=== PATIENT | male | born 1970 | race Caucasian/White ===

== ENCOUNTER 2018-05-02 12:32 | Inpatient (IN) ==
[~2018-05-02 12:32] MED LIST: DEXTROSE 50% 25 GM/50 ML SYRINGE IV PRN; GLUCAGON 1 MG VIAL IM PRN
[2018-05-02] MEDS ORDERED: INFLUENZA VIRUS VACCINE 0.5 ML SYRINGE IM ONE (14:37)
[2018-05-02] MEDS: SODIUM CHLORIDE 0.9% 1,000 ML IV SCH (15:06)
[2018-05-02] MEDS: clonazePAM 0.5 MG TABLET PO SCH (21:00)
[2018-05-02] MEDS: METOPROLOL TARTRATE 25 MG TABLET PO SCH (21:00)
[2018-05-02] MEDS: CHLORHEXIDINE 0.12% ORAL RINSE 60 ML BOTTLE SWISH/SPIT SCH (21:05)
[2018-05-03 03:01] LABS: ABG Base Excess 2.6 MMOL/L (-2.5-2.5); ABG HCO3 26.6 MMOL/L (20-26); ABG Oxygen Saturation 95.1 % (95-100); ABG PCO2 43.5 MM HG (35-48); ABG PH 7.411 (7.35-7.45); ABG PO2 74.5 MM HG (80-95); ABG TCO2 23.7 MMOL/L (23-27); Allen Test Positive; Pt O2 Delivery Device Room Air
[2018-05-03 03:53] LABS: Basophils % 0.2 % (0.0-0.8); Eosinophils # 0.3 10*3/uL (0.0-0.87); Hematocrit 43.3 VOL% (42.0-52.0); Hemoglobin 14.3 GM/DL (14.0-18.0); Immature Granulocytes % 0.4 %; Immature Granulocytes Absolute 0.06 #; Lymphocytes # 3.3 10*3/uL (1.4-4.0); Lymphocytes % 21.5 % (21.2-54.2); Mean Corpuscular Hemoglobin 30 PG (27-34); Mean Corpuscular Volume 91.7 FL (87-102); Mean Platelet Volume 11.5 FL (9.6-12.0); Monocytes # 1.8 10*3/uL (0.11-0.8); Monocytes % 11.5 % (1.7-12.7); Neutrophils # 9.8 10*3/uL (1.4-7.4); Neutrophils % 64.4 % (38.7-73.9); Platelet Count 267 T/CUMM (130-400); Red Blood Count 4.72 MC/CUMM (3.8-5.5); Red Cell Distribution Width 14.4 % (9.3-17.3); White Blood Count 15.2 T/CUMM (4-12)
[2018-05-03 04:18] LABS: Bilirubin,Total 1.4 MG/DL (0.2-1.0); Calcium 8.4 MG/DL (8.5-10.1); Osmolality,Calculated 277.5 MOS/KG (273-304); Potassium 3.9 MMOL/L (3.5-5.1); Total Protein 6.3 G/DL (6.4-8.3)
[2018-05-03] MEDS: ATORVASTATIN 40 MG TABLET PO SCH (08:42)
[2018-05-03] MEDS: PANTOPRAZOLE 40 MG TABLET PO SCH (08:42)
[2018-05-03] MEDS: ASPIRIN CHEW 81 MG TABLET PO SCH (08:42)
[2018-05-03] MEDS: CHLORHEXIDINE 0.12% ORAL RINSE 60 ML BOTTLE SWISH/SPIT SCH ×2 (08:43→20:54)
[2018-05-03] MEDS: clonazePAM 0.5 MG TABLET PO SCH ×2 (08:43→20:49)
[2018-05-03] MEDS: METOPROLOL TARTRATE 25 MG TABLET PO SCH ×2 (08:43→20:58)
[2018-05-03] MEDS: LACTULOSE 20 GM/30 ML UDCUP PO PRN ×2 (10:00→20:53)
[2018-05-03] MEDS: SODIUM CHLORIDE 0.9% 1,000 ML IV SCH (12:39)
[2018-05-04] MEDS ORDERED: BISACODYL 5 MG TABLET PO ONE (08:01)
[2018-05-04] MEDS ORDERED: SODIUM PHOSPHATE ENEMA 133 ML BOTTLE RECTAL ONE (08:01)
[2018-05-04] MEDS: LACTULOSE 20 GM/30 ML UDCUP PO PRN ×2 (08:32→20:24)
[2018-05-04] MEDS: PANTOPRAZOLE 40 MG TABLET PO SCH (08:32)
[2018-05-04] MEDS: ASPIRIN CHEW 81 MG TABLET PO SCH (08:32)
[2018-05-04] MEDS: METOPROLOL TARTRATE 25 MG TABLET PO SCH ×2 (08:32→20:23)
[2018-05-04] MEDS: ATORVASTATIN 40 MG TABLET PO SCH (08:32)
[2018-05-04] MEDS: clonazePAM 0.5 MG TABLET PO SCH ×2 (08:36→20:23)
[2018-05-04] MEDS: CHLORHEXIDINE 0.12% ORAL RINSE 60 ML BOTTLE SWISH/SPIT SCH ×2 (08:36→20:25)
[2018-05-04] MEDS ORDERED: CEFUROXIME INJ 1,500 MG in SYRINGE 1 EACH IV ONE (11:05)
[2018-05-04] MEDS: CHLORHEXIDINE 4% SOLN 118 ML BOTTLE TOP SCH ×2 (14:16→20:25)
[2018-05-04] MEDS: NICOTINE 21 MG/24 HR PATCH TRANSDERM SCH (17:31)
[2018-05-05] MEDS ORDERED: PAPAVERINE 60 MG/2 ML VIAL ONE (04:40)
[2018-05-05] MEDS ORDERED: VANCOMYCIN 1,000 MG VIAL ONE (04:41)
[2018-05-05] MEDS ORDERED: DIAZEPAM 5 MG TABLET PO ONE (05:00)
[2018-05-05] MEDS ORDERED: CEFUROXIME INJ 1,500 MG in SYRINGE 1 EACH IV ONE (05:00)
[2018-05-05] MEDS: CHLORHEXIDINE 4% SOLN 118 ML BOTTLE TOP SCH ×2 (05:09→10:15)
[2018-05-05] MEDS: SODIUM CHLORIDE 0.9% 1,000 ML IV SCH (05:09)
[2018-05-05] MEDS ORDERED: diphenhydrAMINE 50 MG/1 ML VIAL ONE (06:24)
[2018-05-05] MEDS ORDERED: ALBUTEROL 2.5 MG/3 ML NEB RESP TX ONE ×2 (06:24→06:25)
[2018-05-05] MEDS ORDERED: FAMOTIDINE 20 MG/2 ML VIAL IV ONE (06:25)
[2018-05-05] MEDS ORDERED: POTASSIUM CHLORIDE RIDER 100 ML IV ONE (07:42)
[2018-05-05] MEDS ORDERED: SODIUM BICARBONATE 50 MEQ/50 ML SYRINGE IV ONE ×2 (07:44→10:31)
[2018-05-05] MEDS ORDERED: PHENYLEPHRINE DRIP 40 MG/250 ML PREMIX IV ONE (07:44)
[2018-05-05] MEDS ORDERED: ALBUMIN 5% 12.5 GM/250 ML VIAL IV ONE (07:45)
[2018-05-05] MEDS ORDERED: EPINEPHrine 1 MG/10 ML SYRINGE ONE (07:45)
[2018-05-05] MEDS ORDERED: CALCIUM CHLORIDE 1,000 MG/10 ML SYRINGE IV ONE (07:45)
[2018-05-05 07:56] LABS: ABG Base Excess -0.1 MMOL/L (-2.5-2.5); ABG HCO3 24.4 MMOL/L (20-26); ABG Oxygen Saturation 99.5 % (95-100); ABG PH 7.384 (7.35-7.45); ABG TCO2 21.7 MMOL/L (23-27); Glucose Heart Surgery 114 MG/DL (74-106); Hematocrit Heart Surgery 42.2 PERCENT (42-52); Hemoglobin Heart Surgery 13.8 G/DL (14.0-18.0); Ionized Calcium Arterial 1.17 MMOL/L (1.21-1.46); PH Patient Temp Arterial 7.384; Patient Temperature 37 CELCIUS; Potassium Heart/CVR 4.2 MMOL/L (3.5-5.1); Sodium Heart/CVR 139 MMOL/L (135-145)
[2018-05-05 08:13] LABS: Apearance,Urine Slightly Hazy (Clear); Bacteria,Urine Occasional /HPF (Few); Bilirubin,Urine Negative (Negative); Blood, Urine Small mg/dL (Negative); Glucose,Urine (UA) Negative (Negative); Ketones,Urine Negative (Negative); Nitrite,Urine Negative (Negative); Protein,Urine Negative; RBC,Urine 6 /HPF (0-4); Urine Color Yellow (Yellow); Urine Specific Gravity 1.011 (1.001-1.035); Urine Urobilinogen < 2.0 EU/DL (0.2-1.0); WBC,Urine 27 /HPF (0-6)
[2018-05-05 08:56] LABS: Hematocrit Heart Surgery 26.9 PERCENT (42-52); Hemoglobin Heart Surgery 8.6 G/DL (14.0-18.0); PCO2 Patient Temp Venous 33.8 MM HG; PH Patient Temp Venous 7.443; Potassium Heart/CVR 4.1 MMOL/L (3.5-5.1); VBG Base Excess -0.5 MEQ/L (0-4); VBG HCO3 23.8 MEQ/L (24-28); VBG Oxygen Saturation 82.9 %; VBG PCO2 39.1 MMHG (41-51); VBG PH 7.399; VBG PO2 45.6 MMHG (17-40)
[2018-05-05 09:27] LABS: Hemoglobin Heart Surgery 9.7 G/DL (14.0-18.0); PCO2 Patient Temp Venous 31.8 MM HG; PH Patient Temp Venous 7.473; PO2 Patient Temp Venous 36.8 MM HG; Potassium Heart/CVR 3.9 MMOL/L (3.5-5.1); VBG Base Excess 0.2 MEQ/L (0-4); VBG HCO3 24.4 MEQ/L (24-28); VBG Oxygen Saturation 83.1 %; VBG PCO2 36.7 MMHG (41-51); VBG PH 7.428; VBG PO2 45.3 MMHG (17-40)
[2018-05-05 09:57] LABS: Hematocrit Heart Surgery 30.4 PERCENT (42-52); Hemoglobin Heart Surgery 9.8 G/DL (14.0-18.0); PCO2 Patient Temp Venous 37.7 MM HG; PH Patient Temp Venous 7.418; Potassium Heart/CVR 4.2 MMOL/L (3.5-5.1); VBG Base Excess 0.1 MEQ/L (0-4); VBG HCO3 24.1 MEQ/L (24-28); VBG Oxygen Saturation 73.4 %; VBG PCO2 37.7 MMHG (41-51); VBG PH 7.418
[2018-05-05] MEDS: ASPIRIN CHEW 81 MG TABLET PO SCH (10:15)
[2018-05-05] MEDS: NICOTINE 21 MG/24 HR PATCH TRANSDERM SCH (10:15)
[2018-05-05] MEDS: METOPROLOL TARTRATE 25 MG TABLET PO SCH (10:15)
[2018-05-05] MEDS: ATORVASTATIN 40 MG TABLET PO SCH (10:15)
[2018-05-05] MEDS: clonazePAM 0.5 MG TABLET PO SCH (10:15)
[2018-05-05] MEDS: CHLORHEXIDINE 0.12% ORAL RINSE 60 ML BOTTLE SWISH/SPIT SCH ×2 (10:16→20:04)
[2018-05-05] MEDS: PANTOPRAZOLE 40 MG TABLET PO SCH (10:16)
[2018-05-05 10:21] LABS: ABG Base Excess -1.1 MMOL/L (-2.5-2.5); ABG HCO3 23.5 MMOL/L (20-26); ABG Oxygen Saturation 99.7 % (95-100); ABG PCO2 39.8 MM HG (35-48); ABG PH 7.384 (7.35-7.45); ABG TCO2 21.3 MMOL/L (23-27); Glucose Heart Surgery 262 MG/DL (74-106); Hematocrit Heart Surgery 34.7 PERCENT (42-52); Hemoglobin Heart Surgery 11.3 G/DL (14.0-18.0); Ionized Calcium Arterial 1.19 MMOL/L (1.21-1.46); PCO2 Patient Temp Arterial 39.8 MMHG; PH Patient Temp Arterial 7.384; Patient Temperature 37 CELCIUS; Potassium Heart/CVR 3.6 MMOL/L (3.5-5.1); Sodium Heart/CVR 131 MMOL/L (135-145)
[2018-05-05] MEDS ORDERED: SUFentanil 50 MCG/ML AMP ONE (10:29)
[2018-05-05] MEDS ORDERED: MANNITOL 100 GM/500 ML BAG IV ONE (10:31)
[2018-05-05] MEDS ORDERED: ALBUMIN 25% 25 GM/100 ML VIAL IV ONE (10:31)
[2018-05-05] MEDS ORDERED: DEXTROSE 5% KCL 20 MEQ 20 MEQ/1,000 ML BAG IV ONE (10:31)
[2018-05-05] MEDS ORDERED: FUROSEMIDE 20 MG/2 ML VIAL ONE (10:32)
[2018-05-05] MEDS ORDERED: HEPARIN 10,000 UNIT/10 ML VIAL ONE (10:32)
[2018-05-05] MEDS ORDERED: methylPREDNISolone SOD SUC 1,000 MG/8 ML VIAL ONE (10:32)
[2018-05-05] MEDS ORDERED: MAGNESIUM SULFATE 10 GM/20 ML VIAL IV ONE (10:32)
[2018-05-05] MEDS ORDERED: PROTAMINE SULFATE 250 MG/25 ML VIAL IV ONE (10:32)
[2018-05-05] MEDS ORDERED: ACETAMINOPHEN 650 MG SUPP RECTAL PRN (11:17)
[2018-05-05] MEDS ORDERED: INSULIN REGULAR 100 UNIT/ML IV ONE (11:17)
[2018-05-05] MEDS ORDERED: LACTATED RINGERS 250 ML IV PRN (11:17)
[2018-05-05] MEDS ORDERED: MORPHINE 10 MG/1 ML VIAL IV PRN (11:17)
[2018-05-05] MEDS ORDERED: MIDAZOLAM 2 MG/2 ML VIAL IV PRN (11:17)
[2018-05-05] MEDS ORDERED: INSULIN REGULAR 100 UNIT/ML IV PRN (11:17)
[2018-05-05] MEDS ORDERED: PHENYLEPHRINE DRIP 40 MG/250 ML PREMIX IV PRN (11:17)
[2018-05-05] MEDS ORDERED: MAGNESIUM SULF RIDER 4 GM in PREMIX 1 EACH IV PRN (11:17)
[2018-05-05] MEDS ORDERED: VECURONIUM 10 MG VIAL IV PRN ×2 (11:17)
[2018-05-05] MEDS ORDERED: CALCIUM CHLORIDE 1,000 MG/10 ML SYRINGE IV PRN (11:17)
[2018-05-05] MEDS ORDERED: DEXTROSE 50% 25 GM/50 ML SYRINGE IV PRN ×2 (11:17)
[2018-05-05] MEDS ORDERED: MAGNESIUM SULF RIDER 2 GM in PREMIX 1 EACH IV PRN (11:17)
[2018-05-05] MEDS ORDERED: NITROPRUSSIDE 100 MG in DEXTROSE 5% 250 ML IV PRN (11:17)
[2018-05-05] MEDS ORDERED: MIDAZOLAM 10 MG/2 ML VIAL IV PRN (11:17)
[2018-05-05] MEDS ORDERED: ONDANSETRON 4 MG/2 ML VIAL IV PRN (11:17)
[2018-05-05] MEDS ORDERED: SODIUM CHLORIDE 0.45% 1,000 ML IV SCH ×2 (11:30)
[2018-05-05] MEDS ORDERED: INSULIN REGULAR DRIP 100 ML IV SCH (11:30)
[2018-05-05 11:46] LABS: ABG Base Excess -0.3 MMOL/L (-2.5-2.5); ABG HCO3 24.2 MMOL/L (20-26); ABG Oxygen Saturation 97.5 % (95-100); ABG PCO2 50.4 MM HG (35-48); ABG PH 7.329 (7.35-7.45); ABG TCO2 23.4 MMOL/L (23-27); Glucose Heart Surgery 214 MG/DL (74-106); Hematocrit Heart Surgery 39.9 PERCENT (42-52); Potassium Heart/CVR 3.9 MMOL/L (3.5-5.1)
[2018-05-05 11:51] LABS: Basophils # 0.1 10*3/uL (0.0-0.2); Basophils % 0.2 % (0.0-0.8); Eosinophils # 0.2 10*3/uL (0.0-0.87); Eosinophils % 0.7 % (0.00-10.9); Hematocrit 34.6 VOL% (42.0-52.0); Immature Granulocytes % 0.8 %; Immature Granulocytes Absolute 0.19 #; Lymphocytes # 1.5 10*3/uL (1.4-4.0); Lymphocytes % 6.3 % (21.2-54.2); Mean Corpuscular HGB Conc 33.2 GM/DL (32-36); Mean Corpuscular Hemoglobin 31 PG (27-34); Mean Corpuscular Volume 92.5 FL (87-102); Mean Platelet Volume 11.2 FL (9.6-12.0); Monocytes % 4.3 % (1.7-12.7); Neutrophils # 21.2 10*3/uL (1.4-7.4); Neutrophils % 87.7 % (38.7-73.9); Red Cell Distribution Width 14.5 % (9.3-17.3)
[2018-05-05 11:54] LABS: PT Patient Result 10.9 SECS; Partial Thromboplastin Time 26.7 SECS (0-40)
[2018-05-05] MEDS: POTASSIUM CHLORIDE RIDER 20 MEQ in PREMIX 1 EACH IV PRN ×2 (11:56→14:26)
[2018-05-05 11:57] LABS: Hemoglobin 11.5 GM/DL (14.0-18.0); Platelet Count 237 T/CUMM (130-400); Red Blood Count 3.74 MC/CUMM (3.8-5.5); White Blood Count 24.2 T/CUMM (4-12)
[2018-05-05 12:05] LABS: Band Neutrophils 4 % (0-10); Eosinophils 1 % (0-10); Hypochromasia 1+; Lymphocytes 5 % (20-55); Platelet Estimate Adequate; Segmented Neutrophils 87 % (50-85); Total Cells Counted 100
[2018-05-05 12:13] LABS: Albumin 3.4 G/DL (3.4-5.0); Bilirubin,Total 0.6 MG/DL (0.2-1.0); Calcium 10.2 MG/DL (8.5-10.1); Osmolality,Calculated 278.8 MOS/KG (273-304); Potassium 3.9 MMOL/L (3.5-5.1); Total Protein 6.5 G/DL (6.4-8.3)
[2018-05-05] MEDS ORDERED: NITROPRUSSIDE 50 MG/2 ML VIAL ONE (12:14)
[2018-05-05] MEDS: POTASSIUM CHLORIDE RIDER 10 MEQ in PREMIX 1 EACH IV PRN ×3 (12:31→21:00)
[2018-05-05 12:37] LABS: ABG Base Excess 1.4 MMOL/L (-2.5-2.5); ABG HCO3 26.4 MMOL/L (20-26); ABG PCO2 43.3 MM HG (35-48); ABG PH 7.403 (7.35-7.45); ABG PO2 121.1 MM HG (80-95); ABG TCO2 27.7 MMOL/L (23-27); Glucose Heart Surgery 163 MG/DL (74-106); Hemoglobin Heart Surgery 12.7 G/DL (14.0-18.0)
[2018-05-05 12:53] LABS: CKMB % 5.1 %
[2018-05-05 12:56] LABS: Troponin I 19.3 NG/ML (0.00-0.045)
[2018-05-05] MEDS: ALBUMIN 5% 12.5 GM in PREMIX 1 EACH IV PRN ×3 (13:09→18:35)
[2018-05-05] MEDS: ALBUTEROL/IPRATROPIUM 3 ML NEB RESP TX SCH ×3 (14:00→22:34)
[2018-05-05] MEDS ORDERED: SEVOFLURANE 1 UNIT/15 MINUTE INH ONE (14:12)
[2018-05-05] MEDS ORDERED: PHENYLEPHRINE DRIP 20 MG/250 ML PREMIX IV ONE (14:12)
[2018-05-05] MEDS ORDERED: SUFentanil 250 MCG/5 ML AMP ONE (14:12)
[2018-05-05] MEDS ORDERED: CALCIUM CHLORIDE 1,000 MG/10 ML VIAL IV ONE (14:12)
[2018-05-05] MEDS ORDERED: MIDAZOLAM 10 MG/2 ML VIAL ONE ×2 (14:12)
[2018-05-05] MEDS ORDERED: LACTATED RINGERS 1,000 ML IV ONE (14:13)
[2018-05-05] MEDS ORDERED: EPINEPHrine 1 MG/ML VIAL ONE (14:13)
[2018-05-05] MEDS ORDERED: AMINOCAPROIC ACID 5,000 MG/20 ML VIAL IV ONE (14:13)
[2018-05-05] MEDS ORDERED: SODIUM CHLORIDE 0.9% 250 ML IV ONE (14:13)
[2018-05-05] MEDS ORDERED: ETOMIDATE 40 MG/20 ML VIAL IV ONE (14:13)
[2018-05-05] MEDS ORDERED: VECURONIUM 10 MG VIAL IV ONE (14:13)
[2018-05-05] MEDS ORDERED: NITROGLYCERIN DRIP 50 MG/250 ML BOTTLE IV ONE (14:13)
[2018-05-05] MEDS ORDERED: SODIUM CHLORIDE 0.9% 1,000 ML IV ONE (14:13)
[2018-05-05] MEDS ORDERED: SODIUM CHLORIDE 0.9% 100 ML IV ONE (14:13)
[2018-05-05 14:21] LABS: ABG Base Excess 1.3 MMOL/L (-2.5-2.5); ABG HCO3 25.5 MMOL/L (20-26); ABG PCO2 40.6 MM HG (35-48); ABG PH 7.413 (7.35-7.45); ABG TCO2 23.3 MMOL/L (23-27); Glucose Heart Surgery 141 MG/DL (74-106); Hematocrit Heart Surgery 33.4 PERCENT (42-52); Hemoglobin Heart Surgery 10.8 G/DL (14.0-18.0); Potassium Heart/CVR 3.8 MMOL/L (3.5-5.1)
[2018-05-05] MEDS: INSULIN REGULAR 100 UNIT/ML SUBCUT SCH ×2 (16:24→20:00)
[2018-05-05 17:36] LABS: ABG Base Excess -0.2 MMOL/L (-2.5-2.5); ABG HCO3 24.3 MMOL/L (20-26); ABG Oxygen Saturation 98.8 % (95-100); ABG PCO2 41.2 MM HG (35-48); ABG PH 7.388 (7.35-7.45); ABG TCO2 22.2 MMOL/L (23-27); Glucose Heart Surgery 180 MG/DL (74-106); Hematocrit Heart Surgery 34.9 PERCENT (42-52); Hemoglobin Heart Surgery 11.3 G/DL (14.0-18.0); Potassium Heart/CVR 4.4 MMOL/L (3.5-5.1)
[2018-05-05] MEDS: MORPHINE 4 MG/1 ML VIAL IV PRN (18:16)
[2018-05-05] MEDS: CEFUROXIME INJ 1,500 MG in SODIUM CHLORIDE 0.9% 100 ML IV SCH (18:24)
[2018-05-05 20:53] LABS: ABG Base Excess -1.3 MMOL/L (-2.5-2.5); ABG HCO3 23.3 MMOL/L (20-26); ABG Oxygen Saturation 98.7 % (95-100); ABG PCO2 46.2 MM HG (35-48); ABG PH 7.337 (7.35-7.45); ABG TCO2 22.2 MMOL/L (23-27); Glucose Heart Surgery 168 MG/DL (74-106); Hematocrit Heart Surgery 35.4 PERCENT (42-52); Hemoglobin Heart Surgery 11.5 G/DL (14.0-18.0); Potassium Heart/CVR 4.5 MMOL/L (3.5-5.1)
[2018-05-05 22:11] LABS: ABG Base Excess -0.6 MMOL/L (-2.5-2.5); ABG HCO3 23.9 MMOL/L (20-26); ABG Oxygen Saturation 98.5 % (95-100); ABG PCO2 46.2 MM HG (35-48); ABG PH 7.347 (7.35-7.45); ABG TCO2 22.8 MMOL/L (23-27); Glucose Heart Surgery 170 MG/DL (74-106); Hematocrit Heart Surgery 35.1 PERCENT (42-52); Hemoglobin Heart Surgery 11.4 G/DL (14.0-18.0); Potassium Heart/CVR 4.6 MMOL/L (3.5-5.1)
[2018-05-06] MEDS: INSULIN REGULAR 100 UNIT/ML SUBCUT SCH ×6 (00:22→22:28)
[2018-05-06] MEDS: MORPHINE 4 MG/1 ML VIAL IV PRN ×2 (01:07→05:09)
[2018-05-06 01:10] LABS: ABG Base Excess -0.6 MMOL/L (-2.5-2.5); ABG HCO3 23.8 MMOL/L (20-26); ABG Oxygen Saturation 92.5 % (95-100); ABG PCO2 44.7 MM HG (35-48); ABG PH 7.358 (7.35-7.45); ABG PO2 67.4 MM HG (80-95); ABG TCO2 22.5 MMOL/L (23-27); Glucose Heart Surgery 174 MG/DL (74-106); Hematocrit Heart Surgery 36.5 PERCENT (42-52); Hemoglobin Heart Surgery 11.8 G/DL (14.0-18.0); Potassium Heart/CVR 4.3 MMOL/L (3.5-5.1)
[2018-05-06 02:20] LABS: ABG Base Excess -0.3 MMOL/L (-2.5-2.5); ABG HCO3 24.1 MMOL/L (20-26); ABG Oxygen Saturation 94.7 % (95-100); ABG PCO2 46.8 MM HG (35-48); ABG PH 7.348 (7.35-7.45); ABG PO2 77.6 MM HG (80-95); Glucose Heart Surgery 164 MG/DL (74-106); Hematocrit Heart Surgery 36.2 PERCENT (42-52); Hemoglobin Heart Surgery 11.8 G/DL (14.0-18.0); Potassium Heart/CVR 4.4 MMOL/L (3.5-5.1)
[2018-05-06] MEDS ORDERED: FUROSEMIDE 40 MG/4 ML VIAL IV ONE (03:01)
[2018-05-06] MEDS: ALBUTEROL/IPRATROPIUM 3 ML NEB RESP TX SCH ×6 (03:12→23:00)
[2018-05-06 04:10] LABS: ABG Base Excess 1.1 MMOL/L (-2.5-2.5); ABG HCO3 25.7 MMOL/L (20-26); ABG Oxygen Saturation 95.6 % (95-100); ABG PCO2 40.5 MM HG (35-48); ABG TCO2 26.9 MMOL/L (23-27); Glucose Heart Surgery 156 MG/DL (74-106); Hemoglobin Heart Surgery 12.7 G/DL (14.0-18.0); Potassium Heart/CVR 4.1 MMOL/L (3.5-5.1)
[2018-05-06 04:16] LABS: Basophils % 0.1 % (0.0-0.8); Hematocrit 36.2 VOL% (42.0-52.0); Immature Granulocytes % 0.7 %; Lymphocytes # 0.7 10*3/uL (1.4-4.0); Lymphocytes % 2.5 % (21.2-54.2); Mean Corpuscular HGB Conc 33.1 GM/DL (32-36); Mean Corpuscular Hemoglobin 31 PG (27-34); Mean Corpuscular Volume 92.1 FL (87-102); Mean Platelet Volume 11.6 FL (9.6-12.0); Monocytes # 1.1 10*3/uL (0.11-0.8); Monocytes % 4.1 % (1.7-12.7); Neutrophils # 25.8 10*3/uL (1.4-7.4); Neutrophils % 92.6 % (38.7-73.9); Platelet Count 261 T/CUMM (130-400); Red Blood Count 3.93 MC/CUMM (3.8-5.5); Red Cell Distribution Width 14.8 % (9.3-17.3); White Blood Count 27.9 T/CUMM (4-12)
[2018-05-06 04:44] LABS: Band Neutrophils 1 % (0-10); Platelet Estimate Normal; Polychromasia Few; Segmented Neutrophils 99 % (50-85); Total Cells Counted 100
[2018-05-06 04:50] LABS: Albumin 3.8 G/DL (3.4-5.0); Bilirubin,Direct 0.2 MG/DL (0.0-0.20); Bilirubin,Total 0.7 MG/DL (0.2-1.0); Calcium 9.1 MG/DL (8.5-10.1); Osmolality,Calculated 281.5 MOS/KG (273-304); Potassium 4.2 MMOL/L (3.5-5.1); Total Protein 7.5 G/DL (6.4-8.3)
[2018-05-06] MEDS: POTASSIUM CHLORIDE RIDER 20 MEQ in PREMIX 1 EACH IV PRN ×2 (05:09→08:35)
[2018-05-06] MEDS: NICOTINE 21 MG/24 HR PATCH TRANSDERM SCH ×2 (05:45→08:10)
[2018-05-06 05:55] LABS: CKMB % 6.2 %
[2018-05-06 05:58] LABS: Troponin I 15.2 NG/ML (0.00-0.045)
[2018-05-06] MEDS ORDERED: SODIUM CHLORIDE 0.9% 100 ML IV ONE (06:25)
[2018-05-06] MEDS: CEFUROXIME INJ 1,500 MG in SODIUM CHLORIDE 0.9% 100 ML IV SCH (06:26)
[2018-05-06] MEDS: CHLORHEXIDINE 0.12% ORAL RINSE 60 ML BOTTLE SWISH/SPIT SCH (08:06)
[2018-05-06] MEDS ORDERED: MAGNESIUM SULF RIDER 4 GM in PREMIX 1 EACH IV PRN (09:26)
[2018-05-06] MEDS ORDERED: ACETAMINOPHEN 325 MG TABLET PO PRN (09:26)
[2018-05-06] MEDS ORDERED: DEXTROSE 50% 25 GM/50 ML SYRINGE IV PRN (09:26)
[2018-05-06] MEDS ORDERED: DEXTROSE 50% 25 GM/50 ML VIAL IV PRN (09:26)
[2018-05-06] MEDS ORDERED: GLUCAGON 1 MG VIAL IM PRN ×2 (09:26)
[2018-05-06] MEDS ORDERED: MAGNESIUM SULF RIDER 2 GM in PREMIX 1 EACH IV PRN (09:26)
[2018-05-06] MEDS ORDERED: MELOXICAM 7.5 MG TABLET PO PRN (09:26)
[2018-05-06] MEDS ORDERED: ONDANSETRON 4 MG/2 ML VIAL IV PRN (09:26)
[2018-05-06] MEDS ORDERED: ZALEPLON 5 MG CAPSULE PO PRN (09:26)
[2018-05-06] MEDS ORDERED: POTASSIUM CHLORIDE 20 MEQ TABLET PO PRN (09:26)
[2018-05-06] MEDS ORDERED: MAGNESIUM HYDROXIDE SUSP 30 ML UDCUP PO PRN (09:26)
[2018-05-06] MEDS ORDERED: SODIUM CHLOR 0.45% KCL 20 MEQ 20 MEQ/1,000 ML BAG IV SCH (09:30)
[2018-05-06] MEDS: METOPROLOL TARTRATE 25 MG TABLET PO SCH ×2 (09:55→22:30)
[2018-05-06] MEDS: ATORVASTATIN 40 MG TABLET PO SCH (09:55)
[2018-05-06] MEDS: FERROUS SULFATE 325 MG TABLET PO SCH (09:55)
[2018-05-06] MEDS: clonazePAM 0.5 MG TABLET PO SCH ×2 (09:56→22:29)
[2018-05-06] MEDS: PANTOPRAZOLE 40 MG TABLET PO SCH (09:56)
[2018-05-06] MEDS: DOCUSATE SODIUM 100 MG CAPSULE PO SCH (09:56)
[2018-05-06] MEDS: ASPIRIN EC 325 MG TABLET PO SCH (09:56)
[2018-05-06] MEDS: CYCLOBENZAPRINE 10 MG TABLET PO SCH (22:29)
[2018-05-07] MEDS: INSULIN REGULAR 100 UNIT/ML SUBCUT SCH ×6 (01:53→20:23)
[2018-05-07] MEDS: CHLORHEXIDINE 0.12% ORAL RINSE 60 ML BOTTLE SWISH/SPIT SCH ×3 (01:54→21:59)
[2018-05-07] MEDS: ALBUTEROL/IPRATROPIUM 3 ML NEB RESP TX SCH ×6 (03:00→23:28)
[2018-05-07 04:13] LABS: Basophils % 0.1 % (0.0-0.8); Hematocrit 32.2 VOL% (42.0-52.0); Hemoglobin 10.7 GM/DL (14.0-18.0); Immature Granulocytes % 0.9 %; Immature Granulocytes Absolute 0.27 #; Lymphocytes % 3.2 % (21.2-54.2); Mean Corpuscular HGB Conc 33.2 GM/DL (32-36); Mean Corpuscular Hemoglobin 31 PG (27-34); Mean Corpuscular Volume 92.5 FL (87-102); Mean Platelet Volume 11.8 FL (9.6-12.0); Monocytes % 9.9 % (1.7-12.7); Neutrophils % 85.9 % (38.7-73.9); Platelet Count 240 T/CUMM (130-400); Red Blood Count 3.48 MC/CUMM (3.8-5.5); White Blood Count 30.3 T/CUMM (4-12)
[2018-05-07 04:39] LABS: Alanine Aminotransferase 35 U/L (16-61); Albumin 3.2 G/DL (3.4-5.0); Alkaline Phosphatase 50 U/L (45-117); Aspartate Amino Transferase 50 U/L (0-37); Bilirubin,Direct < 0.100 MG/DL (0.0-0.20); Bilirubin,Indirect 0.3 MG/DL (0.0-1.0); Bilirubin,Total < 0.39 MG/DL (0.2-1.0); Blood Urea Nitrogen 32 MG/DL (7-18); CKMB % 2.3 %; Calcium 8.7 MG/DL (8.5-10.1); Glucose 125 MG/DL (74-106); Osmolality,Calculated 282.7 MOS/KG (273-304); Sodium 138 MMOL/L (136-145); Total Protein 6.5 G/DL (6.4-8.3)
[2018-05-07 05:40] LABS: Hypochromasia 1+; Lymphocytes 4 % (20-55); Microcytosis Slight; Segmented Neutrophils 92 % (50-85); Total Cells Counted 100
[2018-05-07 05:41] LABS: Platelet Estimate Normal
[2018-05-07] MEDS ORDERED: ASPIRIN CHEW 81 MG TABLET PO SCH (09:00)
[2018-05-07] MEDS ORDERED: PANTOPRAZOLE 40 MG TABLET PO SCH (09:00)
[2018-05-07] MEDS: ATORVASTATIN 40 MG TABLET PO SCH (09:14)
[2018-05-07] MEDS: NICOTINE 21 MG/24 HR PATCH TRANSDERM SCH ×2 (09:14→09:27)
[2018-05-07] MEDS: FERROUS SULFATE 325 MG TABLET PO SCH (09:15)
[2018-05-07] MEDS: DOCUSATE SODIUM 100 MG CAPSULE PO SCH (09:15)
[2018-05-07] MEDS: ASPIRIN EC 325 MG TABLET PO SCH (09:15)
[2018-05-07] MEDS: PANTOPRAZOLE 40 MG TABLET PO SCH (09:15)
[2018-05-07] MEDS: METOPROLOL TARTRATE 25 MG TABLET PO SCH ×2 (09:15→21:59)
[2018-05-07] MEDS: clonazePAM 0.5 MG TABLET PO SCH ×2 (09:16→21:58)
[2018-05-07] MEDS: MORPHINE 4 MG/1 ML VIAL IV PRN (10:38)
[2018-05-07] MEDS: LEVOFLOXACIN 500 MG TABLET PO SCH (12:36)
[2018-05-07] MEDS: ALUMINUM/MAGNES/SIMETH MAX STR 30 ML UDCUP PO PRN (16:42)
[2018-05-07] MEDS: CYCLOBENZAPRINE 10 MG TABLET PO SCH (21:58)
[2018-05-08] MEDS: MORPHINE 4 MG/1 ML VIAL IV PRN ×2 (00:17→19:50)
[2018-05-08] MEDS: INSULIN REGULAR 100 UNIT/ML SUBCUT SCH ×6 (00:19→21:05)
[2018-05-08] MEDS: ALBUTEROL/IPRATROPIUM 3 ML NEB RESP TX SCH ×6 (02:52→23:15)
[2018-05-08 04:26] LABS: Basophils % 0.2 % (0.0-0.8); Eosinophils % 0.2 % (0.00-10.9); Hematocrit 38.4 VOL% (42.0-52.0); Hemoglobin 12.2 GM/DL (14.0-18.0); Immature Granulocytes % 0.9 %; Immature Granulocytes Absolute 0.17 #; Lymphocytes # 2.9 10*3/uL (1.4-4.0); Lymphocytes % 14.6 % (21.2-54.2); Mean Corpuscular HGB Conc 31.8 GM/DL (32-36); Mean Corpuscular Hemoglobin 30 PG (27-34); Mean Corpuscular Volume 93.4 FL (87-102); Mean Platelet Volume 12.1 FL (9.6-12.0); Monocytes # 2.3 10*3/uL (0.11-0.8); Monocytes % 11.9 % (1.7-12.7); Neutrophils # 14.2 10*3/uL (1.4-7.4); Neutrophils % 72.2 % (38.7-73.9); Platelet Count 241 T/CUMM (130-400); Red Blood Count 4.11 MC/CUMM (3.8-5.5); White Blood Count 19.6 T/CUMM (4-12)
[2018-05-08 04:59] LABS: Alanine Aminotransferase 52 U/L (16-61); Albumin 3.2 G/DL (3.4-5.0); Alkaline Phosphatase 57 U/L (45-117); Aspartate Amino Transferase 49 U/L (0-37); Bilirubin,Direct < 0.100 MG/DL (0.0-0.20); Bilirubin,Indirect 0.3 MG/DL (0.0-1.0); Blood Urea Nitrogen 30 MG/DL (7-18); Calcium 8.7 MG/DL (8.5-10.1); Glucose 95 MG/DL (74-106); Osmolality,Calculated 278.8 MOS/KG (273-304); Potassium 5.1 MMOL/L (3.5-5.1); Sodium 137 MMOL/L (136-145); Total Protein 7.1 G/DL (6.4-8.3)
[2018-05-08] MEDS ORDERED: METOCLOPRAMIDE 10 MG/2 ML VIAL IV ONE (07:15)
[2018-05-08] MEDS ORDERED: PROMETHAZINE INJ 12.5 MG in SODIUM CHLORIDE 0.9% 50 ML IV PRN (07:16)
[2018-05-08] MEDS: CLORAZEPATE 3.75 MG TABLET PO PRN ×3 (07:29→21:10)
[2018-05-08] MEDS: FERROUS SULFATE 325 MG TABLET PO SCH (08:26)
[2018-05-08] MEDS: PANTOPRAZOLE 40 MG TABLET PO SCH (08:26)
[2018-05-08] MEDS: METOPROLOL TARTRATE 25 MG TABLET PO SCH ×2 (08:26→21:06)
[2018-05-08] MEDS: ATORVASTATIN 40 MG TABLET PO SCH (08:26)
[2018-05-08] MEDS: DOCUSATE SODIUM 100 MG CAPSULE PO SCH (08:26)
[2018-05-08] MEDS: ASPIRIN EC 325 MG TABLET PO SCH (08:26)
[2018-05-08] MEDS: CHLORHEXIDINE 0.12% ORAL RINSE 60 ML BOTTLE SWISH/SPIT SCH ×2 (08:27→21:06)
[2018-05-08] MEDS: NICOTINE 21 MG/24 HR PATCH TRANSDERM SCH (08:28)
[2018-05-08] MEDS: clonazePAM 0.5 MG TABLET PO SCH ×2 (08:28→21:06)
[2018-05-08] MEDS: LEVOFLOXACIN 500 MG TABLET PO SCH (12:18)
[2018-05-08] MEDS: LINEZOLID INJ 600 MG in PREMIX 1 EACH IV SCH (16:32)
[2018-05-08] MEDS: ALUMINUM/MAGNES/SIMETH MAX STR 30 ML UDCUP PO PRN (16:38)
[2018-05-09] MEDS ORDERED: INSULIN REGULAR 100 UNIT/ML SUBCUT PRN (01:24)
[2018-05-09] MEDS: ALBUTEROL/IPRATROPIUM 3 ML NEB RESP TX SCH ×6 (03:25→23:00)
[2018-05-09] MEDS: LINEZOLID INJ 600 MG in PREMIX 1 EACH IV SCH ×2 (06:02→17:46)
[2018-05-09] MEDS: clonazePAM 0.5 MG TABLET PO SCH ×2 (08:41→22:04)
[2018-05-09] MEDS: FERROUS SULFATE 325 MG TABLET PO SCH (08:41)
[2018-05-09] MEDS: DOCUSATE SODIUM 100 MG CAPSULE PO SCH (08:41)
[2018-05-09] MEDS: ASPIRIN EC 325 MG TABLET PO SCH (08:41)
[2018-05-09] MEDS: ATORVASTATIN 40 MG TABLET PO SCH (08:41)
[2018-05-09] MEDS: METOPROLOL TARTRATE 25 MG TABLET PO SCH ×2 (08:41→22:05)
[2018-05-09] MEDS: PANTOPRAZOLE 40 MG TABLET PO SCH (08:41)
[2018-05-09] MEDS: CHLORHEXIDINE 0.12% ORAL RINSE 60 ML BOTTLE SWISH/SPIT SCH ×2 (08:43→22:05)
[2018-05-09] MEDS: NICOTINE 21 MG/24 HR PATCH TRANSDERM SCH (08:43)
[2018-05-09] MEDS: LEVOFLOXACIN 500 MG TABLET PO SCH (14:50)
[2018-05-09] MEDS: CLORAZEPATE 3.75 MG TABLET PO PRN (22:12)
[2018-05-10 04:39] LABS: Basophils % 0.3 % (0.0-0.8); Eosinophils # 0.4 10*3/uL (0.0-0.87); Eosinophils % 2.8 % (0.00-10.9); Hematocrit 38.1 VOL% (42.0-52.0); Hemoglobin 12.6 GM/DL (14.0-18.0); Immature Granulocytes % 1.3 %; Immature Granulocytes Absolute 0.19 #; Lymphocytes # 2.3 10*3/uL (1.4-4.0); Lymphocytes % 15.8 % (21.2-54.2); Mean Corpuscular HGB Conc 33.1 GM/DL (32-36); Mean Corpuscular Hemoglobin 30 PG (27-34); Mean Corpuscular Volume 90.9 FL (87-102); Mean Platelet Volume 11.3 FL (9.6-12.0); Monocytes # 1.6 10*3/uL (0.11-0.8); Neutrophils # 9.9 10*3/uL (1.4-7.4); Neutrophils % 68.8 % (38.7-73.9); Platelet Count 344 T/CUMM (130-400); Red Blood Count 4.19 MC/CUMM (3.8-5.5); Red Cell Distribution Width 14.3 % (9.3-17.3); White Blood Count 14.4 T/CUMM (4-12)
[2018-05-10 05:09] LABS: Alanine Aminotransferase 31 U/L (16-61); Albumin 2.9 G/DL (3.4-5.0); Alkaline Phosphatase 55 U/L (45-117); Aspartate Amino Transferase 21 U/L (0-37); Bilirubin,Indirect 0.9 MG/DL (0.0-1.0); Blood Urea Nitrogen 30 MG/DL (7-18); Calcium 8.7 MG/DL (8.5-10.1); Glucose 142 MG/DL (74-106); Potassium 4.3 MMOL/L (3.5-5.1); Sodium 136 MMOL/L (136-145); Total Protein 6.5 G/DL (6.4-8.3)
[2018-05-10] MEDS: LINEZOLID INJ 600 MG in PREMIX 1 EACH IV SCH ×2 (06:05→16:52)
[2018-05-10] MEDS: ALBUTEROL/IPRATROPIUM 3 ML NEB RESP TX SCH ×5 (06:37→19:48)
[2018-05-10] MEDS: FERROUS SULFATE 325 MG TABLET PO SCH (09:57)
[2018-05-10] MEDS: clonazePAM 0.5 MG TABLET PO SCH ×2 (09:57→21:50)
[2018-05-10] MEDS: ASPIRIN EC 325 MG TABLET PO SCH (09:57)
[2018-05-10] MEDS: METOPROLOL TARTRATE 25 MG TABLET PO SCH ×2 (09:58→21:50)
[2018-05-10] MEDS: ATORVASTATIN 40 MG TABLET PO SCH (09:58)
[2018-05-10] MEDS: DOCUSATE SODIUM 100 MG CAPSULE PO SCH (09:58)
[2018-05-10] MEDS: PANTOPRAZOLE 40 MG TABLET PO SCH (09:58)
[2018-05-10] MEDS: NICOTINE 21 MG/24 HR PATCH TRANSDERM SCH (10:13)
[2018-05-10] MEDS: LEVOFLOXACIN 500 MG TABLET PO SCH (15:16)
[2018-05-10] MEDS: CHLORHEXIDINE 0.12% ORAL RINSE 60 ML BOTTLE SWISH/SPIT SCH ×2 (15:16→21:50)
[2018-05-11] MEDS: ALBUTEROL/IPRATROPIUM 3 ML NEB RESP TX SCH ×3 (01:30→07:03)
[2018-05-11] MEDS: LINEZOLID INJ 600 MG in PREMIX 1 EACH IV SCH (04:52)
[2018-05-11 05:09] LABS: Basophils % 0.3 % (0.0-0.8); Eosinophils # 0.4 10*3/uL (0.0-0.87); Eosinophils % 2.9 % (0.00-10.9); Hematocrit 38.5 VOL% (42.0-52.0); Hemoglobin 12.6 GM/DL (14.0-18.0); Immature Granulocytes % 1.2 %; Immature Granulocytes Absolute 0.18 #; Lymphocytes # 2.3 10*3/uL (1.4-4.0); Lymphocytes % 15.7 % (21.2-54.2); Mean Corpuscular HGB Conc 32.7 GM/DL (32-36); Mean Corpuscular Hemoglobin 30 PG (27-34); Mean Corpuscular Volume 90.2 FL (87-102); Mean Platelet Volume 10.7 FL (9.6-12.0); Monocytes # 1.8 10*3/uL (0.11-0.8); Monocytes % 12.3 % (1.7-12.7); Neutrophils # 9.9 10*3/uL (1.4-7.4); Neutrophils % 67.6 % (38.7-73.9); Platelet Count 379 T/CUMM (130-400); Red Blood Count 4.27 MC/CUMM (3.8-5.5); Red Cell Distribution Width 14.2 % (9.3-17.3); White Blood Count 14.7 T/CUMM (4-12)
[2018-05-11 05:30] LABS: Alanine Aminotransferase 28 U/L (16-61); Albumin 2.7 G/DL (3.4-5.0); Alkaline Phosphatase 53 U/L (45-117); Aspartate Amino Transferase 18 U/L (0-37); Bilirubin,Indirect 0.6 MG/DL (0.0-1.0); Blood Urea Nitrogen 28 MG/DL (7-18); Calcium 8.5 MG/DL (8.5-10.1); Glucose 99 MG/DL (74-106); Osmolality,Calculated 275.1 MOS/KG (273-304); Potassium 4.2 MMOL/L (3.5-5.1); Sodium 135 MMOL/L (136-145); Total Protein 6.4 G/DL (6.4-8.3)
[2018-05-11 07:53] VITALS: BP 89/55
== END 2018-05-11 10:30 | disposition home health service (06) | DRG 165 ==
LOC: N.TELES 12:32 → N.CVR 05-05 07:13 → N.ICU 05-06 09:10 → N.TELES 05-06 14:44